=== PATIENT | female | born 1955 ===

== ENCOUNTER 2018-03-07 15:21 | Emergency (ER) | payer OTHER ==
[2018-03-07] MEDS ORDERED: Ketorolac INJ* 30 MG/ML 1 ML VIAL IM ONE (16:11)
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
--- NOTE | 2018-03-07 16:41 | RAD ---
INDICATION: Right hip pain COMPARISON: None TECHNIQUE: An AP view of the pelvis and AP views of the hip in neutral and abducted position were obtained FINDINGS: Bones: There are no acute bony findings. Joint spaces: There is minor symmetric narrowing about each hip. SI joints/symphysis: The SI joints and symphysis are intact. Other: There are postoperative changes about the right hip IMPRESSION: MINOR SYMMETRIC NARROWING ABOUT EACH HIP. POSTOPERATIVE CHANGES RIGHT HIP.
== END 2018-03-07 17:05 | disposition home or self-care (01) ==
LOC: UCEAST 15:21
DX: M25.551 Pain in right hip (principal); F41.9 Anxiety disorder, unspecified; F17.200 Nicotine dependence, unspecified, uncomplicated
CPT/HCPCS: 96372; 99202; G0463; J1885